=== PATIENT | male | born 1995 | race Caucasian/White ===

== ENCOUNTER 2021-04-23 08:51 | Outpatient (CLI) | payer OTHER ==
--- NOTE | 2021-04-23 16:18 | Ultrasound Report ---
PROCEDURE: Doppler Limited INDICATIONS: HEPATOMEGALY TECHNIQUE: Doppler examination of the liver is performed. COMPARISON: None. FINDINGS: There is normal hepatic vascularity on Doppler imaging. IMPRESSION: Normal hepatic Doppler. Reviewed by: Efrain Izaguirre MD on 04/23/2021 4:17 PM [facility] Approved by: Efrain Izaguirre MD on 04/23/2021 4:17 PM [facility] Station ID: [id number]
--- NOTE | 2021-04-23 16:18 | Ultrasound Report ---
PROCEDURE: Abdomen Limited INDICATIONS: HEPATOMEGALY TECHNIQUE: Real-time focused scanning was performed of the abdomen, with image documentation. COMPARISON: None FINDINGS: Liver is enlarged measuring 19 cm, without focal mass. Gallbladder is grossly unremarkable . No biliary ductal dilatation. Pancreas is within normal limits as visualized. Spleen is within norm al limits. Right kidney is normal in size without hydronephrosis. IMPRESSION: Mild hepatomegaly. Otherwise negative examination. Reviewed by: Efrain Izaguirre MD on 04/23/2021 4:17 PM PST Approved by: Efrain Izaguirre MD on 04/23/2021 4:17 PM PST Station ID: [id number]
== END 2021-04-23 08:52 | disposition home or self-care (01) ==
LOC: DI 08:51
PROVIDERS: ATTEND Internal Medicine Gastroenterology
DX: R16.0 Hepatomegaly, not elsewhere classified (principal); R16.1 Splenomegaly, not elsewhere classified
CPT/HCPCS: 93976

== ENCOUNTER 2023-05-12 15:00 | Outpatient (CLI) | payer BC ==
--- NOTE | 2023-05-12 16:09 | XRAY Report ---
PROCEDURE: Wrist 3+V RT INDICATIONS: NUMBNESS OF HAND AND RIGHT WRIST TECHNIQUE: 3 views of the wrist were acquired. COMPARISON: None. FINDINGS: Bones: No fractures or dislocations. No suspicious bony lesions. Soft tissues: No suspicious soft tissue calcifications or masses. IMPRESSION: No acute bony abnormality. Reviewed by: Roly Marsh MD on 05/12/2023 4:07 PM PDT Approved by: Roly Marsh MD on 05/12/2023 4:07 PM PDT Station ID: [id number]
--- NOTE | 2023-05-12 17:41 | XRAY Report ---
PROCEDURE: Hand 3+V RT INDICATIONS: ANESTHESIA OF SKIN TECHNIQUE: 3 views of the hand(s) acquired. COMPARISON: None. FINDINGS: Bones: No fractures or dislocations. No suspicious bony lesions. Soft tissues: No suspicious soft tissue calcifications or masses. IMPRESSION: Unremarkable exam. Reviewed by: Pam Qiu MD on 05/12/2023 5:39 PM PDT Approved by: Pam Qiu MD on 05/12/2023 5:39 PM PDT Station ID: [id number]
== END 2023-05-12 15:01 | disposition home or self-care (01) ==
LOC: DI.S 15:00
PROVIDERS: ATTEND Nurse Practitioner Family
DX: R20.0 Anesthesia of skin (principal)

== ENCOUNTER 2023-05-14 10:56 | Outpatient (CLI) | payer BC ==
[2023-05-14 15:15] LABS: BASOPHILS # (AUTO) 0.1 10^3/uL (0.0-0.1); BASOPHILS % (AUTO) 1.1 %; EOSINOPHILS # (AUTO) 0.3 10^3/uL (0.0-0.7); EOSINOPHILS % (AUTO) 4.1 %; HCT - HEMATOCRIT 43.8 % (42.0-52.0); HGB - HEMOGLOBIN 14.4 g/dL (14.0-18.0); LYMPHOCYTES # (AUTO) 2.6 10^3/uL (1.5-3.5); LYMPHOCYTES % (AUTO) 35.5 %; MEAN CORPUSCULAR HEMOGLOBIN 28.8 pg (27.0-31.0); MEAN CORPUSCULAR HGB CONC 32.9 g/dL (32.0-36.0); MEAN CORPUSCULAR VOLUME 87.6 fL (80.0-94.0); MEAN PLATELET VOLUME 11.7 fL (7.4-11.4); MONOCYTES # (AUTO) 0.5 10^3/uL (0.0-1.0); NEUTROPHILS # (AUTO) 3.8 10^3/uL (1.5-6.6); NEUTROPHILS % (AUTO) 51.1 %; PLT - PLATELET COUNT 188 10^3/uL (130-450); RED CELL DISTRIBUTION WIDTH 12.8 % (12.0-15.0); WHITE BLOOD COUNT 7.4 x10^3/uL (4.8-10.8)
[2023-05-14 15:46] LABS: ALBUMIN 4.5 g/dL (3.2-5.5); ALBUMIN/GLOBULIN RATIO 1.5 (1.0-2.2); BILIRUBIN,TOTAL 0.8 mg/dL (0.2-1.0); CALCIUM 9.9 mg/dL (8.5-10.3); CREATININE 0.8 mg/dL (0.6-1.3); POTASSIUM 4.1 mmol/L (3.5-4.5); TOTAL PROTEIN 7.5 g/dL (6.4-8.9)
[2023-05-14 15:52] LABS: THYROID STIMULATING HORMONE 1.02 uIU/mL (0.34-5.60)
== END 2023-05-14 10:57 | disposition home or self-care (01) ==
LOC: LAB.S 10:56
PROVIDERS: ATTEND Nurse Practitioner Family
DX: R20.0 Anesthesia of skin (principal)
CPT/HCPCS: 36415; 80053; 82607; 82746; 84443; 85025